=== PATIENT | male | born 1975 | race Caucasian/White ===

== ENCOUNTER 2016-12-08 00:19 | Emergency (ER) | payer OTHER ==
[2016-12-08] MEDS ORDERED: LIDOCAINE-MPF 1% 5 ML VIAL ONE (00:51)
[2016-12-08] MEDS ORDERED: BACITRACIN OINT TOP STA (01:19)
== END 2016-12-08 01:54 | disposition home or self-care (01) ==
DX: S61.411A Laceration without foreign body of right hand, initial encounter (principal); W27.0XXA Contact with workbench tool, initial encounter; Y93.89 Activity, other specified; Y92.018 Other place in single-family (private) house as the place of occurrence of the external cause; I10 Essential (primary) hypertension

== ENCOUNTER 2017-09-22 08:21 | Emergency (ER) | payer OTHER ==
[2017-09-22 08:28] VITALS: BP 138/104
--- NOTE | 2017-09-22 08:34 | ED Physician Documentation ---
PD HPI CHEST PAIN - Stated complaint Stated Complaint: CHEST PX - Chief complaint Chief Complaint: Cardiac - History obtained from History obtained from: Patient - History of Present Illness Timing - onset: How many days ago (3-4) Timing - onset during: Light activity (no trauma/ impact to the area.) Timing - duration: Days Timing - details: Gradual onset, Still present (worsening symptoms, hurts to breath and move.) Quality: Aching, Sharp, Pain Location: Left chest Radiation: Back, Left upper extremity Improved by: No: Rest Worsened by: Exertion, Inspiration, Movement. No: Palpation Associated symptoms: Shortness of air, Feeling faint / dizzy. No: Nausea, General Weakness, Palpitations, Cough Similar symptoms before: Has not had sx before Recently seen: Not recently seen Review of Systems Constitutional: denies: Fever, Chills, Myalgias Nose: denies: Rhinorrhea / runny nose, Congestion Throat: denies: Sore throat Cardiac: reports: Chest pain / pressure. denies: Palpitations, Pedal edema, Calf pain Respiratory: reports: Dyspnea. denies: Cough, Wheezing GI: denies: Nausea, Vomiting, Diarrhea : denies: Dysuria, Frequency Skin: denies: Rash Musculoskeletal: reports: Back pain. denies: Neck pain Neurologic: denies: Generalized weakness, Focal weakness, Numbness, Near syncope Endocrine: denies: Weight loss, Easy bruising / bleeding Immunocompromised: denies: Immunocompromised PD PAST MEDICAL HISTORY - Past Medical History Cardiovascular: Hypertension Respiratory: None Neuro: None Endocrine/Autoimmune: None - Past Surgical History Past Surgical History: Yes Ortho: ACL reconstruction, Rotator cuff repair, Shoulder arthroplasty - Present Medications Home Medications: Ambulatory Orders Medication Instructions Recorded Confirmed HYDROcod/ACETAM 5/325 [Vicodin 1 - 2 ea PO Q6H PRN #15 tablet 02/06/14 5/325] Ibuprofen [Motrin] 600 mg PO Q6H PRN #30 tab 02/06/14 Dexamethasone [Decadron] 4 mg PO DAILY #5 tablet 09/22/17 Doxycycline Monohydrate 100 mg PO BID #14 tablet 09/22/17 Naproxen [Naprosyn] 500 mg PO BID PRN #20 tablet 09/22/17 Oxycodone HCl/Acetaminophen 1 each PO Q6H PRN #20 tablet 09/22/17 [Percocet 5-325 mg Tablet] - Allergies Allergies/Adverse Reactions: Allergies Allergy/AdvReac Type Severity Reaction Status Date / Time No Known Drug Allergies Allergy Verified 12/08/16 00:31 - Social History Does the pt smoke?: No Smoking Status: Never smoker Does the pt drink ETOH?: Yes Does the pt have substance abuse?: No - Family History Family history: denies: Venous thromboembolism, Aortic aneursym, Aortic dissection - Immunizations Immunizations are current?: Yes - POLST Patient has POLST: No PD ED PE NORMAL - Vitals Vital signs reviewed: Yes - General General: Alert and oriented X 3, Well developed/nourished, Other (appears in pain, some splinting breathing. ) - HEENT HEENT: Atraumatic, Ears normal, Pharynx benign - Neck Neck: Supple, no meningeal sign, No adenopathy, No JVD, No bruit - Cardiac Cardiac: RRR, No murmur - Respiratory Respiratory: No respiratory distress, Clear bilaterally, Other (no chestwall tenderness) - Abdomen Abdomen: Soft, Non tender - Derm Derm: Normal color, Warm and dry - Extremities Extremities: No deformity, No tenderness to palpate, No edema, No calf tenderness / cord - Neuro Neuro: Alert and oriented X 3, No motor deficit, Normal speech - Psych Psych: Normal mood, Normal affect Results - Vitals Vitals: Oxygen O2 Source Room air - EKG (time done) 08:28 Rate: Rate (enter#) (87) Rhythm: NSR Wallace: Normal Intervals: Normal [place] QRS: Normal Ischemia: Normal ST segments. No: ST elevation c/w ischemia, ST depression Compare to prior EKG: Old EKG unavailable - Labs Labs: Laboratory Tests 09/22/17 09/22/17 09/22/17 08:29 08:29 08:29 WBC 8.1 RBC 5.46 Hgb 16.1 Hct 47.0 MCV 86.2 MCH 29.5 MCHC 34.2 RDW 13.8 Plt Count 275 MPV 7.1 L Neut # 5.5 Lymph # 1.6 [place] # 0.9 Eos # 0.1 Baso # 0.0 Absolute Nucleated RBC 0.01 Nucleated RBC % 0.1 D-Dimer Sodium 139 Potassium 4.3 Chloride 101 Carbon Dioxide 28 Anion Gap 10.0 BUN 15 Creatinine 0.9 Estimated GFR (MDRD) 93 Glucose 115 H Calcium 9.6 Total Bilirubin 0.5 AST 37 ALT 68 H Alkaline Phosphatase 69 Troponin I < 0.04 Total Protein 8.1 Albumin 4.7 Globulin 3.4 Albumin/Globulin Ratio 1.4 Lipase 25 09/22/17 08:29 WBC RBC Hgb Hct MCV MCH MCHC RDW Plt Count MPV Neut # Lymph # [place] # Eos # Baso # Absolute Nucleated RBC Nucleated RBC % D-Dimer 268.1 H Sodium Potassium Chloride Carbon Dioxide Anion Gap BUN Creatinine Estimated GFR (MDRD) Glucose Calcium Total Bilirubin AST ALT Alkaline Phosphatase Troponin I Total Protein Albumin Globulin Albumin/Globulin Ratio Lipase - Rads (name of study) chest Radiology: Prelim report reviewed (small infiltrate/atelectasis left base. ) chest CT Radiology: Prelim report reviewed (infiltrate at bases, pneumonia vs. atelectasis. No dissection nor PE. ), EMP read contemporaneously PD MEDICAL DECISION MAKING - ED course Complexity details: reviewed results, considered differential (concern for PTX, ME, effusion, and quite concerned for aortic process/dissection. ), d/w patient Departure - Departure Disposition: 01 Home, Self Care Clinical Impression: Left sided chest pain, Pleurisy, Lung infiltrate on CT Condition: Stable Record reviewed to determine appropriate education?: Yes Instructions: ED Chest Pain Pleurisy Follow-Up: Anil Guillory ARNP [Primary Care Provider] - Prescriptions: Dexamethasone [Decadron] 4 mg PO DAILY #5 tablet Doxycycline Monohydrate 100 mg PO BID #14 tablet Naproxen [Naprosyn] 500 mg PO BID PRN #20 tablet PRN Reason: Pain Oxycodone HCl/Acetaminophen [Percocet 5-325 mg Tablet] 1 each PO Q6H PRN #20 tablet PRN Reason: Pain Comments: Drink lots of fluids. Use naproxen twice daily for the next 7-10 days. Take it with food to not irritate the stomach. Similarly with Decadron steroid anti- inflammatory daily for 5 more days. Add Tylenol or Percocet if needed for pain. We will also add doxycycline for potential pneumonia though the infiltrate on x-ray may be just inflammatory from not breathing deeply. Recheck if not improving of the next several days and I would expect this to trend down and be improved in that several day timeframe. Discharge Date/Time: 09/22/17 11:48
[2017-09-22 08:41] LABS: BASOPHILS % (AUTO) 0.6 %; EOSINOPHILS # (AUTO) 0.1 10^3/uL (0.0-0.7); EOSINOPHILS % (AUTO) 0.7 %; HGB - HEMOGLOBIN 16.1 g/dL (14.0-18.0); LYMPHOCYTES # (AUTO) 1.6 10^3/uL (1.5-3.5); LYMPHOCYTES % (AUTO) 20.1 %; MEAN CORPUSCULAR HEMOGLOBIN 29.5 pg (27.0-31.0); MEAN CORPUSCULAR HGB CONC 34.2 g/dL (32.0-36.0); MEAN CORPUSCULAR VOLUME 86.2 fL (80.0-94.0); MEAN PLATELET VOLUME 7.1 fL (7.4-11.4); MONOCYTES # (AUTO) 0.9 10^3/uL (0.0-1.0); MONOCYTES % (AUTO) 10.9 %; NEUTROPHILS # (AUTO) 5.5 10^3/uL (1.5-6.6); NEUTROPHILS % (AUTO) 67.7 %; PLT - PLATELET COUNT 275 10^3/uL (130-450); RED BLOOD COUNT 5.46 10^6/uL (4.70-6.10); RED CELL DISTRIBUTION WIDTH 13.8 % (12.0-15.0); WHITE BLOOD COUNT 8.1 x10^3/uL (4.8-10.8)
[2017-09-22] MEDS ORDERED: MORPHINE 10 MG/ML VIAL IVP STA (08:42)
[2017-09-22] MEDS ORDERED: SODIUM CHLORIDE 0.9% 1,000 ML IV ONE (08:42)
[2017-09-22] MEDS ORDERED: ONDANSETRON 4 MG/2 ML VIAL IVP STA ×2 (08:42→09:12)
[2017-09-22 08:53] LABS: ALBUMIN 4.7 g/dL (3.2-5.5); ALBUMIN/GLOBULIN RATIO 1.4 (1.0-2.2); BILIRUBIN,TOTAL 0.5 mg/dL (0.2-1.0); CALCIUM 9.6 mg/dL (8.5-10.3); CREATININE 0.9 mg/dL (0.6-1.2); TOTAL PROTEIN 8.1 g/dL (6.7-8.2)
--- NOTE | 2017-09-22 09:05 | XRAY Report ---
EXAM: CHEST RADIOGRAPHY EXAM DATE: 09/22/2017 08:48 AM. CLINICAL HISTORY: Chest pain. COMPARISON: None. TECHNIQUE: 1 view. FINDINGS: Lungs/Pleura: Mild bibasilar atelectasis No pleural effusion. No pneumothorax. Decreased lung volumes Mediastinum: Within exam limitations, the cardiomediastinal contour is normal. Other: None. IMPRESSION: Mild bibasilar atelectasis [facility] Referring Provider Line: [phone] SITE ID: [id number]
[2017-09-22] MEDS ORDERED: HYDROmorphone 1 MG/ML SYRINGE IVP STA (09:12)
[2017-09-22] MEDS ORDERED: KETOROLAC 60 MG/2 ML VIAL IVP STA (09:13)
[2017-09-22] MEDS ORDERED: MAG HYDROX/AL HYDROX/SIMETH 30 ML UDC PO STA (09:13)
[2017-09-22] MEDS ORDERED: IOPAMIDOL-300 100 ML VIAL ONE (09:24)
--- NOTE | 2017-09-22 10:22 | CT Preliminary Report ---
Exam: CT CHEST ANGIO (AORTA) IMPRESSION: 1. Left lower lobe infiltrate with trace effusion. Small infiltrate or atelectasis in the lingula. 2. No aneurysm or dissection. [facility] SITE ID: [id number]
--- NOTE | 2017-09-22 10:22 | CT Report ---
EXAM: CT ANGIOGRAM CHEST, EXAM DATE: 09/22/2017 09:55 AM. CLINICAL HISTORY: Left sided chest pain, pleuritic. COMPARISONS: None. TECHNIQUE: Routine axial helical CT angiographic imaging was performed through the chest, IV Contrast: 100 cc [id number]. Reconstructions: Coronal, sagittal, and 3D MIP reconstructions of the aorta. In accordance with CT protocol optimization, one or more of the following dose reduction techniques w ere utilized for this exam: automated exposure control, adjustment of mA and/or KV based on patient s ize, or use of iterative reconstructive technique. FINDINGS: Vascular Structures: Normal. No aneurysm, dissection, or significant atherosclerotic disease of the t horacic aorta, . The visualized pulmonary vascular structures are also within normal limits. Lungs/Pleura: Left lower lobe posterior, lateral segment infiltrate with trace left effusion. Small a johnna of atelectasis or infiltrate in the left lingula. Atelectasis right lung base. Mediastinum: Normal. No cardiac enlargement or adenopathy. Abdominal Organs: Normal. Bones: No significant abnormality. Other: None. IMPRESSION: 1. Left lower lobe infiltrate with trace effusion. Small infiltrate or atelectasis in the lingula. 2. No aneurysm or dissection. [facility] Referring Provider Line: [phone] SITE ID: [id number]
[2017-09-22] MEDS ORDERED: DOXYCYCLINE 100 MG TABLET PO STA (10:59)
[2017-09-22] MEDS ORDERED: IOPAMIDOL-300 100 ML VIAL IVP ONE (17:31)
== END 2017-09-22 11:48 | disposition home or self-care (01) ==
LOC: ED 08:21
DX: R07.9 Chest pain, unspecified (principal); R09.1 Pleurisy; R91.8 Other nonspecific abnormal finding of lung field; I10 Essential (primary) hypertension
CPT/HCPCS: 36415; 71010; 71275; 80053; 83690; 84484; 85025; 85379; 93005; 96361; 96374; 96375; 99283; 99285; A9270; J1170; Q9967

== ENCOUNTER 2018-07-11 18:04 | Emergency (ER) | payer OTHER ==
[2018-07-11] MEDS ORDERED: KETOROLAC 60 MG/2 ML VIAL IVP STA (19:03)
[2018-07-11] MEDS ORDERED: KETOROLAC 60 MG/2 ML VIAL IM STA (19:07)
--- NOTE | 2018-07-11 19:56 | XRAY Report ---
Reason: pain, injury Procedure Date: 07/11/2018 Accession Number: [id number] / [id number] Procedure: XR - Foot 3 View RT CPT Code: FULL RESULT: EXAM: RIGHT FOOT RADIOGRAPHY EXAM DATE: 07/11/2018 07:51 PM. CLINICAL HISTORY: Pain, injury. COMPARISON: None. TECHNIQUE: 3 views. FINDINGS: Bones: No fracture or focal bony lesion. Joints: No evidence of dislocation. Soft Tissues: No unexpected soft tissue findings. IMPRESSION: No evidence of fracture or dislocation. [facility]
--- NOTE | 2018-07-11 20:05 | ED Physician Documentation ---
PD HPI LOWER EXT INJURY - Stated complaint Stated Complaint: RT FOOT INJ - Chief complaint Chief Complaint: Ext Problem - History obtained from History obtained from: Patient - History of Present Illness PD HPI LOW EXT INJURY LOCATION: Right, Foot Timing - onset: Today Timing - details: Abrupt onset Improved by: Nothing Worsened by: Moving Contributing factors: No: Anticoagulated - Additional information Additional information: 42-year-old male who has a history of plantar fasciitis on the right foot. Today while moving a heavy object the patient heard a pop and now has increased pain on the plantar surface of his foot. No injury to the ankle, Achilles, knee or hip. Symptoms are described as moderate. No relieving factors Review of Systems Constitutional: denies: Fever Cardiac: denies: Chest pain / pressure GI: denies: Abdominal Pain Skin: denies: Rash, Laceration (s) Musculoskeletal: reports: Extremity pain Neurologic: denies: Generalized weakness PD PAST MEDICAL HISTORY - Past Medical History Cardiovascular: Hypertension Respiratory: None Endocrine/Autoimmune: None - Past Surgical History Past Surgical History: Yes Ortho: ACL reconstruction, Rotator cuff repair, Shoulder arthroplasty - Allergies Allergies/Adverse Reactions: Allergies Allergy/AdvReac Type Severity Reaction Status Date / Time No Known Drug Allergies Allergy Verified 07/11/18 18:12 - Social History Does the pt smoke?: No Smoking Status: Never smoker Does the pt drink ETOH?: Yes Does the pt have substance abuse?: No - Immunizations Immunizations are current?: Yes - POLST Patient has POLST: No PD ED PE NORMAL - General General: Alert and oriented X 3, No acute distress - HEENT HEENT: Atraumatic, PERRL, EOMI - Respiratory Respiratory: No respiratory distress - Neuro Neuro: Alert and oriented X 3, Normal speech - Psych Psych: Normal affect PD ED PE EXPANDED - Extremities Feet visual: 1 - tenderness (There is mild swelling and pinpoint tenderness in this area. The patient has no bony tenderness in the foot or ankle. There is no evidence of infectious changes. The patient has brisk cap refill and a normal dorsalis pedis pulse) Results - Vitals Vitals: Vital Signs - 24 hr 07/11/18 07/11/18 18:09 19:48 Temperature 36.5 C Heart Rate 94 90 Respiratory 16 16 Rate Blood Pressure 171/105 H 145/97 H O2 Saturation 95 95 Oxygen O2 Source Room air - Rads (name of study) XR foot Radiology: Final report received PD MEDICAL DECISION MAKING - ED course ED course: The patient's symptoms may be secondary to a worsening plantar fasciitis or potentially a tear of a ligamentous structure or tendon. The patient will be placed in a walking boot and the patient appears appropriate for discharge and ongoing outpatient management. I have given the patient's name of the on-call orthopedic surgeon for further workup and evaluation. I discussed warning signs and recommended returning to the emergency department immediately for any worsening or any concerns. Departure - Departure Disposition: 01 Home, Self Care Clinical Impression: Acute foot pain Qualifiers: Laterality: unspecified laterality Qualified Code(s): M79.673 - Pain in unspecified foot Condition: Good Instructions: ED Sprain Foot Follow-Up: Anil Guillory ARNP [Primary Care Provider] - Within 3 Days Davide Jacques MD [Provider Admit Priv/Credential] - (Call to schedule a follow-up appointment for further evaluation of your injury) Comments: Please follow-up with primary care and orthopedics to further evaluate your injury. Please return to the emergency department for any worsening or any concerns.
[2018-07-11 20:16] VITALS: BP 139/97
== END 2018-07-11 20:20 | disposition home or self-care (01) ==
LOC: ED 18:04
DX: M79.671 Pain in right foot (principal); I10 Essential (primary) hypertension
CPT/HCPCS: 96372; 99282; 99283

== ENCOUNTER 2018-08-01 07:50 | Outpatient (CLI) | payer OTHER ==
--- NOTE | 2018-08-01 14:39 | MRI Report ---
Reason: CERVICALGIA Procedure Date: 08/01/2018 Accession Number: [id number] / [id number] Procedure: MRI - Cervical Spine W/O CPT Code: FULL RESULT: EXAM: MRI CERVICAL SPINE WITHOUT CONTRAST EXAM DATE: 08/01/2018 07:57 AM. CLINICAL HISTORY: 42-year-old male. CERVICALGIA. COMPARISONS: None. TECHNIQUE: Multiplanar, multisequence T1-weighted and fluid-sensitive sequences of the cervical spine without contrast. Other: None. FINDINGS: Neurologic Structures: The visualized posterior fossa structures are unremarkable. No signal abnormality in the visualized spinal cord. Alignment: Mild reversal of the normal cervical lordosis centered at C5-C6 level. Bone Marrow: No gross fractures or bone lesions. There is edema associated with the left C2-C3 facet joint (series 501 image 2), likely on the basis of degenerative change. 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 Interspace Levels/Facets: C1-C2: Unremarkable. C2-C3: Mild diffuse disk bulge. Moderate left facet arthropathy. No significant central canal narrowing. Mild left foraminal narrowing. No right foraminal narrowing. C3-C4: Mild bilateral facet arthropathy. Mild diffuse disk bulge. No significant central canal narrowing. Mild bilateral foraminal narrowing. C4-C5: Mild diffuse disk bulge. No significant central canal or foraminal narrowing. C5-C6: Moderate disk height loss. Moderate diffuse disk bulge. Moderate right and mild left uncovertebral spurring. Mild bilateral facet arthropathy. Mild to moderate central canal narrowing. Moderate right and mild left foraminal narrowing. C6-C7: Moderate disk height loss. Moderate diffuse disk bulge. Moderate bilateral uncovertebral spurring. Mild to moderate central canal narrowing. Severe left and moderate right foraminal narrowing. C7-T1: No significant central canal or foraminal narrowing. Musculature: Normal. No edema or fatty atrophy. Other: The paravertebral and prevertebral soft tissues are normal. IMPRESSION: 1. Mild to moderate multilevel degenerative spondylosis, as detailed above and summarized below. No evidence of acute fracture or malalignment. No cord signal abnormality. 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 2. There is edema associated with the left C2-C3 facet joint (series 501 image 2), likely on the basis of degenerative change in the absence of signs/symptoms of infection. This may represent a source of pain. 3. C2-C3: No significant central canal narrowing. Mild left foraminal narrowing. No right foraminal narrowing. 4. C3-C4: No significant central canal narrowing. Mild bilateral foraminal narrowing. 5. C5-C6: Mild to moderate central canal narrowing. Moderate right and mild left foraminal narrowing. Recommend correlation for right C6 radicular symptoms. 6. C6-C7: Mild to moderate central canal narrowing. Severe left and moderate right foraminal narrowing. Recommend correlation for bilateral C7 radicular symptoms, left greater than right. [facility]
== END 2018-08-01 07:51 | disposition home or self-care (01) ==
LOC: DI 07:50
PROVIDERS: ATTEND Registered Nurse Diabetes Educator
DX: M47.812 Spondylosis without myelopathy or radiculopathy, cervical region (principal); M48.02 Spinal stenosis, cervical region
CPT/HCPCS: 72141